=== PATIENT | female | born 1975 | race Caucasian/White ===

== ENCOUNTER 2022-04-15 17:31 | Emergency (ER) | payer MEDICAID ==
[~2022-04-15] VITALS: Ht 165.1 cm; Wt 65.8 kg
[2022-04-15 18:04] VITALS: BP 122/71
--- NOTE | 2022-04-15 18:49 | NUR ---
46 Y/O F BIB SELF PT C/O RIGHT FOOT PAIN . DENIES INJURY OR TRAUMA TODAY BUT HAD A FALL BACK IN SEPTEMBER. NKA PMH: DENIES
--- NOTE | 2022-04-15 19:12 | NUR ---
IZABELLA SHARMA AT BEDSIDE.
--- NOTE | 2022-04-15 19:24 | NUR ---
GAVE REPORT TO [facility].
[2022-04-15 19:45] VITALS: BP 122/71
--- NOTE | 2022-04-15 19:45 | NUR ---
Patient discharged with v/s stable. Written and verbal after care instructions given and explained. Patient verbalized understanding. Ambulatory with steady gait. All questions addressed prior to discharge. Advised to follow up with PMD.
== END 2022-04-15 19:45 | disposition home or self-care (01) ==
LOC: MED 17:31
DX: M79.671 Pain in right foot (principal)
CPT/HCPCS: 99282

== ENCOUNTER 2022-05-23 08:06 | Emergency (ER) | payer MEDICAID ==
[~2022-05-23] VITALS: Ht 160 cm; Wt 63.5 kg
[2022-05-23 08:07] VITALS: BP 133/70
--- NOTE | 2022-05-23 08:15 | NUR ---
46 y/o female, pt presents to ed with c/o left knee pain that started today after mechanical fall. pt states she tripped over her feet. denies loc, syncope, n/v/d. 05/15 pain at this time. a&ox4, does not ambulate at this time due to pain. ermd made aware. pmh: denies nka med: tylenol 500mg
[2022-05-23] MEDS ORDERED: KETOROLAC 60 MG/2 ML VIAL IM ONE ×2 (08:20→08:22)
--- NOTE | 2022-05-23 08:42 | NUR ---
X-Ray at bedside.
[2022-05-23] MEDS ORDERED: IBUP-2213 PO (10:37)
[2022-05-23 10:47] VITALS: BP 133/70
--- NOTE | 2022-05-23 10:50 | NUR ---
Patient discharged with v/s stable. Written and verbal after care instructions given and explained. Patient alert, oriented and verbalized understanding of instructions. Wheel Chair Assisted with spouse to car. All questions addressed prior to discharge. ID band removed. Patient advised to follow up with PMD. Rx of ibuprofen (sent) given. Patient educated on indication of medication including possible reaction and side effects. Opportunity to ask questions provided and answered.
== END 2022-05-23 10:50 | disposition home or self-care (01) ==
LOC: MED 08:06
DX: S80.02XA Contusion of left knee, initial encounter (principal); W18.30XA Fall on same level, unspecified, initial encounter; Y93.89 Activity, other specified; Y92.89 Other specified places as the place of occurrence of the external cause; Y99.8 Other external cause status
CPT/HCPCS: 73562; 96372; 99283; J1885

== ENCOUNTER 2023-08-17 09:50 | Emergency (ER) | payer MEDICAID, OTHER ==
[~2023-08-17] VITALS: Ht 160 cm; Wt 59.9 kg
[~2023-08-17 09:50] MED LIST: IBUP-2213 PO
[2023-08-17 10:13] VITALS: BP 109/70; PULSE 102; RESP 20; TEMP 98; O2SAT 99
[2023-08-17 11:09] LABS: BILIRUBIN,URINE 2+ (NEGATIVE); BLOOD, URINE NEGATIVE (NEGATIVE); COLOR,URINE YELLOW (YELLOW); LEUKOCYTE ESTERASE ,URINE TRACE (NEGATIVE); NITRITE, URINE POSITIVE (NEGATIVE); PROTEIN,URINE 2+ (NEGATIVE); UGLUCOSE TRACE (NEGATIVE)
[2023-08-17 11:17] LABS: APPEARANCE,URINE SLIGHTLY HAZY (CLEAR)
[2023-08-17 11:27] LABS: RBC,URINE 0-5 /HPF (0-5); WBC,URINE 0-5 /HPF (0-5)
[2023-08-17 11:28] LABS: BACTERIA,URINE 1+ /HPF (None Seen); SQUAMOUS EPITHELIAL CELL,UR 0-3 (FEW) /LPF (0-3 (FEW))
[2023-08-17] MEDS ORDERED: NACL 0.9% 1,000 ML IV SCH (11:35)
[2023-08-17] MEDS ORDERED: cefTRIAXone 1,000 MG VIAL ONE (12:06)
[2023-08-17 12:11] VITALS: O2SAT 99
[2023-08-17 12:29] LABS: BASOPHILS # (AUTO) 0.1 K/uL (0.00-0.22); BASOPHILS % (AUTO) 0.8 % (0.0-2.0); EOSINOPHILS # (AUTO) 0.1 K/uL (0-0.4); EOSINOPHILS % (AUTO) 0.4 % (0.0-4.0); HEMATOCRIT 42.1 % (36-48); HEMOGLOBIN 14.4 g/dL (12.0-16.0); LYMPHOCYTES # (AUTO) 3.4 K/uL (2.5-16.5); LYMPHOCYTES % (AUTO) 20.5 % (20.5-51.1); MEAN CORPUSCULAR HEMOGLOBIN 30 pg (27-31); MEAN CORPUSCULAR HGB CONC 34 g/dL (33-37); MEAN CORPUSCULAR VOLUME 87.6 fL (80-94); MONOCYTES # (AUTO) 1.5 K/uL (0.8-1.0); NEUTROPHILS # (AUTO) 11.4 K/uL (1.8-7.7); NEUTROPHILS % (AUTO) 69.3 % (42.2-75.2); PLATELET COUNT (AUTO) 441 K/uL (140-450); RED CELL DISTRIBUTION WIDTH 13.4 % (11.6-13.7); WHITE BLOOD COUNT (AUTO) 16.5 K/uL (4.8-10.8)
[2023-08-17 13:16] LABS: LACTIC ACID 0.9 mmol/L (0.4-2.0)
[2023-08-17] MEDS ORDERED: ONDANSETRON 4 MG/2 ML VIAL IVP ONE (13:50)
[2023-08-17] MEDS ORDERED: MORPHINE SULFATE 4 MG/ML SYR IVP ONE (13:50)
[2023-08-17 13:51] LABS: ALANINE AMINOTRANSFERASE 58 U/L (12-78); ALBUMIN 3.6 g/dL (3.4-5.0); ALKALINE PHOSPHATASE 113 U/L (50-136); ASPARTATE AMINOTRANSFERASE 33 U/L (15-37); BILIRUBIN,DIRECT 0.1 mg/dL (0.0-0.3); TOTAL BILIRUBIN 0.5 mg/dL (0.0-1.0); TOTAL PROTEIN, SERUM 9.8 g/dL (6.4-8.2)
[2023-08-17] MEDS ORDERED: CEPH-588 PO (13:58)
[2023-08-17] MEDS ORDERED: ONDA-188 SL (13:59)
[2023-08-17] MEDS ORDERED: ACET-10509 PO (13:59)
[2023-08-17 14:02] LABS: ANION GAP 15.1 (8-16); CALCIUM 9.1 mg/dL (8.5-10.1); CARBON DIOXIDE 27.6 mmol/L (21-32); CREATININE 0.9 mg/dL (0.6-1.3); POTASSIUM 3.7 mmol/L (3.5-5.1)
[2023-08-17 14:12] VITALS: O2SAT 99
[2023-08-17 14:38] VITALS: BP 106/52; PULSE 99; RESP 20; TEMP 98; O2SAT 99
== END 2023-08-17 14:38 | disposition home or self-care (01) ==
LOC: MED 09:50
DX: N12 Tubulo-interstitial nephritis, not specified as acute or chronic (principal); Z79.899 Other long term (current) drug therapy; Z79.2 Long term (current) use of antibiotics; Z79.1 Long term (current) use of non-steroidal anti-inflammatories (NSAID)
CPT/HCPCS: 36415; 74176; 80048; 80076; 81001; 81025; 83605; 83880; 84484; 85025; 87040; 87086; 96365; 96375; 99285; J0696; J2270; J2405; J7030